=== PATIENT | female | born 1950 | race Caucasian/White ===

== ENCOUNTER 2017-03-05 13:42 | Emergency (ER) | payer OTHER ==
[~2017-03-05] VITALS: Ht 170.2 cm; Wt 134.4 kg
[2017-03-05 14:00] VITALS: Ht 170.2 cm; Wt 134.4 kg
[2017-03-05] MEDS ORDERED: KETOROLAC 30 MG INJ IM STA (15:01)
[2017-03-05] MEDS ORDERED: SILVER SULFADIAZINE 1% 25 GM CR TOP ONE (15:30)
[2017-03-05] MEDS ORDERED: DIPHTH/TET/ACEL PERTUSS (ADULT) 0.5 ML VIAL IM* ONE (15:30)
[2017-03-05] MEDS ORDERED: CEPH-443 PO (15:39)
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
== END 2017-03-05 15:48 | disposition home or self-care (01) ==
LOC: FTE 13:42
DX: T21.21XA Burn of second degree of chest wall, initial encounter (principal); T24.232A Burn of second degree of left lower leg, initial encounter; E11.9 Type 2 diabetes mellitus without complications; I10 Essential (primary) hypertension; J45.909 Unspecified asthma, uncomplicated; X11.8XXA Contact with other hot tap-water, initial encounter; Z23 Encounter for immunization
CPT/HCPCS: 82962; 90471; 90715; 96372; J1885; Z7502; Z7610